=== PATIENT | female | born 1980 ===

== ENCOUNTER 2023-09-07 13:51 | Outpatient (CLI) | payer BC, SELFPAY ==
--- NOTE | ~2023-09-07 | US_ITS ---
EXAMINATION: US thyroid DATE: 09/07/2023 14:03 INDICATION: Thyroid nodule. TECHNIQUE: Multiple ultrasound images of the thyroid were obtained. COMPARISON: None. FINDINGS: The right thyroid lobe measures 4.1 x 1.8 x 1.7 cm. The left thyroid lobe measures 3.9 x 1.7 x 1.6 c m. There is normal echotexture and echogenicity throughout the thyroid gland. No discrete nodules id entified. Normal vascular flow is present. IMPRESSION: Normal thyroid ultrasound findings. Reviewed, dictated and finalized at location K.
== END 2023-09-07 13:52 ==
LOC: MICIMG 13:52
PROVIDERS: PCP Family Medicine; Visit Provider Physician Assistant Medical
DX: E04.1 Nontoxic single thyroid nodule (principal)
CPT/HCPCS: 76536